=== PATIENT | male | born 1990 | race Caucasian/White ===

== ENCOUNTER → 2016-05-31 | Outpatient (CLI) | payer OTHER ==
[~2016-05-31] MED LIST: OXYC-57 PO
== END | disposition home or self-care (01) ==
LOC: C.LABSPEC 17:19
PROVIDERS: ATTEND Podiatrist Foot & Ankle Surgery
DX: L97.509 Non-pressure chronic ulcer of other part of unspecified foot with unspecified severity (principal)

== ENCOUNTER → 2016-05-31 | Outpatient (CLI) | payer OTHER ==
[2016-05-31 14:39] LABS: BASO % 0.2 %; BASO ABS # 0.02 K/uL (0-0.2); COMPLETE YES; EOS % 2.7 %; HEMATOCRIT 42.1 % (42-52); IG% 0.1 %; LYMPH % 21.6 %; LYMPH ABS # 2.28 K/uL (1.2-3.4); MEAN CORPUSCULAR HEMOGLOBIN 31.7 pg (25-34); MEAN CORPUSCULAR HGB CONC 33.7 g/dl (32-36); MEAN PLATELET VOLUME 9.8 fL (7.4-10.4); MONO % 8.1 %; NEUT % 67.3 %; PLATELET COUNT 231 K/uL (130-400); RED BLOOD COUNT 4.48 M/uL (4.7-6.1); WHITE BLOOD COUNT 10.56 K/uL (4.8-10.8)
[2016-05-31 14:56] LABS: ESTIMATED AVERAGE GLUCOSE 100 mg/dl; HA1C FLAG Normal (Normal)
== END | disposition home or self-care (01) ==
LOC: C.LAB 12:58
PROVIDERS: ATTEND Podiatrist Foot & Ankle Surgery
DX: L03.115 Cellulitis of right lower limb (principal)

== ENCOUNTER → 2016-06-01 | Outpatient (CLI) | payer OTHER ==
[~2016-06-01] MED LIST changes: +GADAVIST IV PRN
--- NOTE | 2016-06-01 14:34 | DIAGNOSTIC IMAGING REPORT ---
MRI THE RIGHT FOREFOOT WITHOUT AND WITH GADOLINIUM CLINICAL HISTORY: Right foot infection. Possible osteomyelitis. COMPARISON STUDY: Conventional radiographic study dated 04/22/2016 FINDINGS: Imaging was performed in the sagittal coronal and axial planes. Imaging was performed before and after the administration of 8 cc of intravenous Gadavist. There are no areas of marrow edema to indicate osteomyelitis. There is diffuse dorsal soft tissue edema. No pathologic intramuscular masses are visualized. There is no evidence of pathologic joint effusion. Within the plantar soft tissues, superficial to the flexor tendon, at the level the first metatarsal phalangeal joint, there is an 18 mm focus of edema. There appears to be a defect in the overlying skin. There is a tiny focus of decreased T2 signal which could represent a small air droplets. This is likely inflammatory. IMPRESSION: 1. Presumed 18 mm inflammatory focus within the plantar soft tissues at the level of the first metatarsal phalangeal joint 2. No evidence of focal abscess. No evidence of osteomyelitis 3. Dorsal soft tissue edema. Electronically signed by: Eugene Villavicencio M.D. 06/01/2016 2:32 PM Dictated Date/Time: 06/01/2016 2:26 PM
== END | disposition home or self-care (01) ==
LOC: C.MRIBC 13:09
PROVIDERS: ATTEND Podiatrist Foot & Ankle Surgery
DX: M79.671 Pain in right foot (principal)